=== PATIENT | male | born 1955 | race Two or more races ===

== ENCOUNTER 2019-01-12 14:09 | Inpatient (IN) | payer MEDICARE, MEDICAID ==
[~2019-01-12] VITALS: Ht 175.3 cm; Wt 78.5 kg
[2019-01-12] MEDS ORDERED: LISI-603 PO (15:04)
[2019-01-12] MEDS ORDERED: ERGO500040 PO (15:04)
[2019-01-12] MEDS ORDERED: DIVA-76 PO (15:04)
[2019-01-12] MEDS ORDERED: MELO-105 PO (15:04)
[2019-01-12] MEDS ORDERED: HYDR12.5 PO (15:04)
[2019-01-12] MEDS ORDERED: GABA-532 PO (15:04)
[2019-01-12] MEDS ORDERED: MECL-102 PO (15:04)
[2019-01-12] MEDS ORDERED: CITA10TA9 PO (15:04)
[2019-01-12 16:54] VITALS: BP 115/64
[2019-01-12] MEDS ORDERED: MAG HYDROX/AL HYDROX/SIMETH 30 ML UDC PO PRN (17:00)
[2019-01-12] MEDS ORDERED: MAGNESIUM HYDROXIDE 30 ML UDC PO PRN (17:00)
[2019-01-12] MEDS ORDERED: clonazePAM 0.5 MG TABLET PO PRN (17:00)
[2019-01-12] MEDS ORDERED: TEMAZEPAM 7.5 MG CAPSULE PO PRN (17:00)
[2019-01-12] MEDS ORDERED: ACETAMINOPHEN 325 MG TABLET PO PRN (17:00)
[2019-01-12] MEDS ORDERED: BLOOD SUGAR DIAGNOSTIC 1 EACH STRIP IN ONE (17:00)
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
--- NOTE | 2019-01-13 05:17 | NUR ---
GPS RN NOTES PT WAS UP ALL NIGHT, NEEDY, PACING HALLWAY. OFFERED SLEEP MEDS SEVERAL TIMES THROUGHOUT THE NIGHT BUT PT REFUSED, STATING "I SLEEP DURING THE DAY AND STAY UP AT NIGHT". ALERT AND ORIENTED X3. REQUIRES FREQUENT REDIRECTION. COOPERATIVE. FLUID AND SNACK GIVEN TOLERATED. NO S/S OF DISTRESS. DENIES SI, HI AT THIS TIME. PT HAS SEVERELY CRACKED HEELS ON BLE, REDNESS AND SCRATCHES ON BLE, BLACK TOENAILS ON BLE. WOUND CONSULT HAS BEEN DONE. HYPERVERBAL/TALKATIVE. STEADY GAIT. WILL CONTINUE TO MONITOR FOR SAFETY, MOOD, AND BEHAVIOR. ENDORSE TO AM SHIFT.
[2019-01-13 08:00] VITALS: BP 131/72
[2019-01-13 08:07] LABS: ALBUMIN 3.4 g/dL (3.4-5.0); BILIRUBIN,TOTAL 0.3 mg/dL (0.2-1.0); CALCIUM, SERUM 8.8 mg/dL (8.5-10.1); POTASSIUM 4.2 mmol/L (3.5-5.1); TOTAL PROTEIN, SERUM 7.3 g/dL (6.4-8.2)
[2019-01-13 08:17] LABS: CHOLESTEROL 210 mg/dL (<200); HDL CHOLESTEROL 57 mg/dL (40-60); LDL 124 mg/dL (0-99); TRIGLYCERIDES 131 mg/dL (30-150)
[2019-01-13] MEDS: HYDROCHLOROTHIAZIDE 25 MG TABLET PO SCH (08:46)
[2019-01-13] MEDS: MELOXICAM 7.5 MG TABLET PO SCH (08:47)
[2019-01-13] MEDS: LISINOPRIL (20MG) 20 MG TABLET PO SCH (08:47)
[2019-01-13 16:00] VITALS: BP 114/77
[2019-01-13 20:52] VITALS: BP 107/69
[2019-01-13] MEDS: OLANZAPINE 5 MG/TAB.RAPDIS PO SCH (21:32)
[2019-01-14 08:00] VITALS: BP 145/72
--- NOTE | 2019-01-14 08:41 | NUR ---
WOUND CARE CONSULT: PT PRESENTS AMBULATORY AND CONTINENT WITH TENDER CRACKED HEELS, PRESENT ON ADMISSION. RECOMMEND DPM CONSULT. DR SEXTON NOTIFIED OF CONSULT REQUEST. WILL SEE PRN.
[2019-01-14] MEDS: MELOXICAM 7.5 MG TABLET PO SCH (08:51)
[2019-01-14] MEDS: OLANZAPINE 5 MG/TAB.RAPDIS PO SCH ×2 (08:51→22:09)
[2019-01-14] MEDS: HYDROCHLOROTHIAZIDE 25 MG TABLET PO SCH (08:51)
[2019-01-14] MEDS: LISINOPRIL (20MG) 20 MG TABLET PO SCH (08:56)
--- NOTE | 2019-01-14 09:28 | NUR ---
Family Contact: SW called the pts , Seda ([phone]), and discussed the pts treatment plan and initial discharge plan. SW stated that the plan is for the pt to return to his home with his once he is stable on his medications. Pts stated that the pt does not take his medications and that he may be cheeking so the SW stated that she is going to discuss that with the pts nurse.
[2019-01-14 12:17] LABS: BASOPHILS # (AUTO) 0.1 /CMM (0.0-0.2); BASOPHILS % (AUTO) 1.1 % (0.0-2.0); EOSINOPHILS % (AUTO) 2.8 % (0.0-6.0); HEMATOCRIT 38 % (39-51); HEMOGLOBIN 12.5 g/dL (13.5-17.5); LYMPHOCYTES # (AUTO) 1.1 /CMM (0.8-4.8); LYMPHOCYTES % (AUTO) 18.9 % (20.0-44.0); MEAN CORPUSCULAR HGB CONC 33 g/dl (31.0-36.0); MEAN CORPUSCULAR VOLUME 92 fL (80-96); MONOCYTES # (AUTO) 0.7 /CMM (0.1-1.30); MONOCYTES % (AUTO) 11.8 % (2.0-12.0); NEUTROPHILS # (AUTO) 3.9 /CMM (1.8-8.9); NEUTROPHILS % (AUTO) 65.4 % (43.0-81.0); PLATELET COUNT (AUTO) 340 /CMM (150-450); RED BLOOD CELL COUNT(AUTO) 4.11 MIL/uL (4.5-6.0)
--- NOTE | 2019-01-14 14:57 | NUR ---
Initial Discharge Plan: Pt currently resides at his home with his located at [address] [place] [address]; ([phone]). Per pt, he would like to return to his home. JOLIE will work with the pt and the MD regarding appropriate discharge planning. SW will form a safe and proper discharge plan.
[2019-01-14 16:00] VITALS: BP 110/73
[2019-01-14 20:03] VITALS: BP 136/74
[2019-01-14 22:10] LABS: APPEARANCE,URINE CLEAR (CLEAR); BILIRUBIN,URINE NEGATIVE (NEGATIVE); BLOOD, URINE NEGATIVE Ery/uL (NEGATIVE); COLOR,URINE YELLOW (YELLOW); KETONES,URINE NEGATIVE (NEGATIVE); LEUKOCYTE ESTERASE ,URINE NEGATIVE (NEGATIVE); NITRITE, URINE NEGATIVE (NEGATIVE); PROTEIN,URINE NEGATIVE (NEGATIVE); UGLUCOSE NEGATIVE (NEGATIVE); UROBILINOGEN,URINE 0.2 EU/dL (0.2)
[2019-01-15 08:00] VITALS: BP 133/87
[2019-01-15] MEDS: LISINOPRIL (20MG) 20 MG TABLET PO SCH ×3 (08:06→09:00)
[2019-01-15] MEDS: HYDROCHLOROTHIAZIDE 25 MG TABLET PO SCH ×3 (08:07→09:00)
[2019-01-15] MEDS: OLANZAPINE 5 MG/TAB.RAPDIS PO SCH ×2 (08:08→21:22)
[2019-01-15] MEDS: MELOXICAM 7.5 MG TABLET PO SCH (08:09)
[2019-01-15] MEDS: ERGOCALCIFEROL (VITAMIN D 2) 50,000 UNIT CAPSULE PO SCH (08:15)
[2019-01-15] MEDS: MINERAL OIL/PETROLATUM,WHITE 120 GM JAR TP PRN ×2 (08:16→21:51)
[2019-01-15 16:00] VITALS: BP 131/71
[2019-01-15 20:24] VITALS: BP 107/65
--- NOTE | 2019-01-16 06:48 | NUR ---
GPS-RN PATIENT NOTED WITH SWELLING AND REDNESS ON BILATERAL FEET. PT DENIES ANY PAIN OR DISCOMFORT. INSTRUCTED PATIENT TO ELEVATE THE AFFECTED AREA TOLERATED. APPLIED EUCERIN CREAM ORDERED TO BILATERAL CRACKED HEELS. WILL ENDORSE TO THE DAY SHIFT NURSE FOR FOLLOW-UP.
[2019-01-16 08:00] VITALS: BP 127/69
[2019-01-16] MEDS: HYDROCHLOROTHIAZIDE 25 MG TABLET PO SCH (08:27)
[2019-01-16] MEDS: OLANZAPINE 5 MG/TAB.RAPDIS PO SCH ×2 (08:27→21:17)
[2019-01-16] MEDS: MELOXICAM 7.5 MG TABLET PO SCH (08:27)
[2019-01-16] MEDS: LISINOPRIL (20MG) 20 MG TABLET PO SCH (08:28)
--- NOTE | 2019-01-16 12:47 | NUR ---
RN NOTE: CONTACTED DR. SEXTON'S OFFICE AND SPOKE WITH PRANAV LEFT MESSAGE FOR MD TO RETURN CALL REGARDING BILATERAL REDNESS AND SWELLING TO LOWER EXTREMITIES. AWAITING FOR CALL BACK.
--- NOTE | 2019-01-16 14:52 | NUR ---
SS GROUP NOTE Goal: Patient will attend group held today from 1:00pm-3:00pm in the activities room and participate and/or actively listen to peers and be respectful. Intervention: SW facilitated group session with patients regarding sensory activity for the s. SW explored what tastes, smells, sounds, and sights come to mind when thinking about the iday season and gratefulness. SW redirected pt. as he presented with circumstantial speech and went off topic at times. Response: Patient was agreeable to participating in group session. The patient presented hyperverbal and pleasant. Patient was alert remained calm and cooperative throughout session. Pt. expressed he is grateful for his tierra, family and health. Pt. shard that he most enjoys turkey and the large feast his family has during . The patient was respectful towards her peers when they shared. Plan: Patient will be invited to attend next medical social consultant group session held.
[2019-01-16 16:00] VITALS: BP 103/57
[2019-01-16 21:51] VITALS: BP 107/71
[2019-01-17 08:00] VITALS: BP 119/74
[2019-01-17] MEDS: LISINOPRIL (20MG) 20 MG TABLET PO SCH (09:00)
[2019-01-17] MEDS: HYDROCHLOROTHIAZIDE 25 MG TABLET PO SCH (09:00)
[2019-01-17] MEDS: MELOXICAM 7.5 MG TABLET PO SCH (09:01)
[2019-01-17] MEDS: OLANZAPINE 5 MG/TAB.RAPDIS PO SCH ×2 (09:01→22:28)
--- NOTE | 2019-01-17 11:20 | NUR ---
PC Hearing Notification: SW informed the pt about his PC hearing and he stated that he wanted to remain in the hospital and that he does not want his to be informed of this hearing.
--- NOTE | 2019-01-17 15:11 | NUR ---
SS Group Note 01/17/19 JOLIE invited patient to today's support group at 1:00pm regarding Mindfulness in the activities room. Patient refused and stated, "I'm teaching someone how to speak Kittitian. Do you want to learn?". SW thanked pt. for kindness and redirected pt. to topic. SW encouraged patient to attend or sit in.SW explained the purpose and benefits of mindfulness Pt.stated he would attend once he was finished writing down the Kittitian alphabet.
[2019-01-17 16:00] VITALS: BP 104/72
[2019-01-17 20:12] VITALS: BP 129/76
[2019-01-18 08:00] VITALS: BP 141/89
[2019-01-18] MEDS: OLANZAPINE 5 MG/TAB.RAPDIS PO SCH ×2 (08:36→21:38)
[2019-01-18] MEDS: MELOXICAM 7.5 MG TABLET PO SCH (08:36)
[2019-01-18] MEDS: LISINOPRIL (20MG) 20 MG TABLET PO SCH (08:40)
[2019-01-18] MEDS: HYDROCHLOROTHIAZIDE 25 MG TABLET PO SCH (08:40)
[2019-01-18 16:00] VITALS: BP 115/79
--- NOTE | 2019-01-18 19:22 | NUR ---
GPS/RN NOTE: AWAKE, ALERT, TALKING OVER THE PHONE DURING INITIAL ROUNDING. MONITORING CONTINUES DURING THE SHIFT TO MAINTAIN SAFETY. NO APPARENT DISTRESS NOTED.
[2019-01-18 20:00] VITALS: BP 138/83
[2019-01-19] MEDS ORDERED: ONDANSETRON HCL/PF 4 MG/2 ML VIAL ONE (00:25)
[2019-01-19 08:00] VITALS: BP 123/85
[2019-01-19] MEDS: HYDROCHLOROTHIAZIDE 25 MG TABLET PO SCH (08:43)
[2019-01-19] MEDS: MELOXICAM 7.5 MG TABLET PO SCH (08:43)
[2019-01-19] MEDS: OLANZAPINE 5 MG/TAB.RAPDIS PO SCH ×2 (08:44→21:42)
[2019-01-19] MEDS: LISINOPRIL (20MG) 20 MG TABLET PO SCH (08:44)
[2019-01-19 16:00] VITALS: BP 110/65
[2019-01-19] MEDS ORDERED: LORAZEPAM 0.5 MG TABLET PO STA (17:41)
--- NOTE | 2019-01-19 17:56 | NUR ---
RN NOTE: PT RECEIVED OUTSIDE FOOD FROM [employer]. WHEN TOLD HE COULD NOT HAVE THE FOOD PT YELLED AND VIOLENTLY THREW FOOD ON THE GROUND. ORDER FOR ATIVAN 05.MG PO X 1.
[2019-01-19 19:57] VITALS: BP 129/81
--- NOTE | 2019-01-20 06:40 | NUR ---
PICTURE/SKIN ASSESSMENT IN CHAT
[2019-01-20 08:00] VITALS: BP 132/78
[2019-01-20] MEDS: HYDROCHLOROTHIAZIDE 25 MG TABLET PO SCH (08:44)
[2019-01-20] MEDS: MELOXICAM 7.5 MG TABLET PO SCH (08:44)
[2019-01-20] MEDS: LISINOPRIL (20MG) 20 MG TABLET PO SCH (08:45)
[2019-01-20] MEDS: OLANZAPINE 5 MG/TAB.RAPDIS PO SCH ×2 (08:45→21:12)
--- NOTE | 2019-01-20 08:51 | NUR ---
Friend Contact: JOLIE called the pts friend, Manjit ([phone]), who brought him into the hospital. He stated that he feels as if the pt is not behaving appropriately. He stated that the pts car is located in front of his house and that he does not understand that the car cannot just stay there indefinitely. He stated that he is not sure if the pts understands his situation and how to best assist him. SW stated that she would speak to her regarding his care once discharged from the hospital.
--- NOTE | 2019-01-20 15:30 | NUR ---
GROUP NOTE: SW assessed pts ability to participate in group therapy discussing "discharge planning." Pt was asleep and not easily aroused.
[2019-01-20 16:00] VITALS: BP 111/63
[2019-01-20 20:57] VITALS: BP 118/71
[2019-01-21 08:00] VITALS: BP 113/73
[2019-01-21] MEDS: HYDROCHLOROTHIAZIDE 25 MG TABLET PO SCH (09:00)
[2019-01-21] MEDS: LISINOPRIL (20MG) 20 MG TABLET PO SCH (09:00)
--- NOTE | 2019-01-21 09:04 | NUR ---
Family Contact: SW called the pts , Seda ([phone]), and informed her that the pt will be discharged sometime this week due to his improvement in behavior. SW stated that she would keep her informed regarding the discharge so that the necessities can be in place. SW stated that the pt would need to follow up with his aftercare providers to ensure that he will be cared for. Pts stated that she will work on making an appointment and making sure that he attends his appointments.
[2019-01-21] MEDS: MELOXICAM 7.5 MG TABLET PO SCH (10:03)
[2019-01-21] MEDS: OLANZAPINE 5 MG/TAB.RAPDIS PO SCH ×2 (10:03→21:08)
--- NOTE | 2019-01-21 15:40 | NUR ---
Group Note: SW encouraged the pt to attend group therapy on 01/21/19 at 2pm on the topic of discharge planning. SW assessed pts ability to participate in group therapy. Pt stated that he did not need to participate in group therapy due to being cognitively aware.
[2019-01-21 16:00] VITALS: BP 122/91
--- NOTE | 2019-01-21 18:00 | NUR ---
UP AND ABOUT ALL DAY,SOCIALIZING,COOPERATIVE,MED COMPLIANT.
[2019-01-21 20:23] VITALS: BP 137/68
[2019-01-21] MEDS: DIVALPROEX SODIUM 125 MG TABLET.DR PO SCH (21:07)
[2019-01-22 08:00] VITALS: BP 120/75
[2019-01-22] MEDS: DIVALPROEX SODIUM 125 MG TABLET.DR PO SCH ×2 (08:13→21:06)
[2019-01-22] MEDS: ERGOCALCIFEROL (VITAMIN D 2) 50,000 UNIT CAPSULE PO SCH (08:14)
[2019-01-22] MEDS: HYDROCHLOROTHIAZIDE 25 MG TABLET PO SCH ×2 (08:15→08:19)
[2019-01-22] MEDS: MELOXICAM 7.5 MG TABLET PO SCH (08:15)
[2019-01-22] MEDS: LISINOPRIL (20MG) 20 MG TABLET PO SCH ×2 (08:15→08:19)
[2019-01-22] MEDS: OLANZAPINE 5 MG/TAB.RAPDIS PO SCH ×2 (08:16→21:06)
[2019-01-22 16:00] VITALS: BP 112/71
[2019-01-22 20:31] VITALS: BP 123/70
[2019-01-23 08:00] VITALS: BP 133/85
[2019-01-23] MEDS: MELOXICAM 7.5 MG TABLET PO SCH (08:53)
[2019-01-23] MEDS: HYDROCHLOROTHIAZIDE 25 MG TABLET PO SCH (08:53)
[2019-01-23] MEDS: DIVALPROEX SODIUM 125 MG TABLET.DR PO SCH ×3 (08:54→21:15)
[2019-01-23] MEDS: OLANZAPINE 5 MG/TAB.RAPDIS PO SCH ×2 (08:54→21:15)
[2019-01-23] MEDS: LISINOPRIL (20MG) 20 MG TABLET PO SCH (09:00)
[2019-01-23 16:00] VITALS: BP 137/89
--- NOTE | 2019-01-23 16:28 | NUR ---
Family Contact: JOLIE called the pts , Seda ([phone]), and informed her that the pt is being discharged back home the next day. She stated that she will come pick him up at 3pm.
[2019-01-23 20:46] VITALS: BP 130/70
--- NOTE | 2019-01-23 21:30 | NUR ---
GPS RN NOTES: REFUSED DEPAKOTE- PER PATIENT HE DOES NOT LIKE THE EFFECT OF DEPAKOTE THAT MAKES HIM ACTIVE AND NOT SLEEP THROUGH THE NIGHT.
[2019-01-24 08:00] VITALS: BP 116/84
[2019-01-24] MEDS: OLANZAPINE 5 MG/TAB.RAPDIS PO SCH (08:35)
[2019-01-24] MEDS: DIVALPROEX SODIUM 125 MG TABLET.DR PO SCH (08:36)
[2019-01-24] MEDS: MELOXICAM 7.5 MG TABLET PO SCH (08:36)
[2019-01-24 08:37] VITALS: BP 116/84
[2019-01-24] MEDS: LISINOPRIL (20MG) 20 MG TABLET PO SCH (08:37)
[2019-01-24] MEDS: HYDROCHLOROTHIAZIDE 25 MG TABLET PO SCH (08:37)
--- NOTE | 2019-01-24 09:26 | NUR ---
DR. HOYT GAVE AN ORDER TO D/C HOLD AND D/C HOME AND TO FOLLOW UP WITH PSYCH AND MEDICAL DOCTORS.
--- NOTE | 2019-01-24 13:49 | NUR ---
Family Contact: SW called the pts , Seda ([phone]), and she stated that the pt will get picked up either by her or by her sister around 3pm.
--- NOTE | 2019-01-24 15:13 | NUR ---
Discharge Note: Pt was discharged to his home located at [address] [facility], [address] [address]; ([phone]). Pts , Seda ([phone]), arranged for the pt to be picked up by [employer] at 3pm. Upon discharge, the pt appeared to be in a dysphoric mood and presented with an agitated affect. Pt denied both suicidal and homicidal ideation as well as auditory and visual hallucinations. Pt will be under the care of [facility] by Dr. Demi Montesinos for psychiatric services located at [address] [address]; and a fax of records was sent to: [phone]. Pt will continue to be under the care of his strategic alliances manager, Dr Jack Brothers, located at [address] [place] [address]; .
--- NOTE | 2019-01-24 15:15 | NUR ---
GPS/RN PT DISCHARGED [facility]IA [employer] [facility] [id number] ARRANGED BY PT'S SISTER. PT ACCOMPANIED TO THE CAR BY FLOR[employer]DANO. PRESCRIPTIONS AND EXIT CARE PROVIDED. NO SI OR HI AT THE TIME OF D/C. PROPERTY RETURNED. SHOES ARRANGED FROM DONATION SUPPLY. ID BAND REMOVED. PT REFUSED TO LET THE NURSE TO TAKE PICTURES PRIOR TO D/C.
--- NOTE | 2019-01-25 11:10 | NUR ---
GPS/RN CALLED IN PRESCRIPTIONS TO [facility] [phone] BY PT'S REQUEST PT LOST THE PRESCRIPTIONS.
== END 2019-01-24 15:15 | disposition home or self-care (01) | DRG 885 ==
LOC: GPS 14:51
PROVIDERS: ADMIT Psychiatry & Neurology Psychiatry; ATTEND Family Medicine
DX: F39 Unspecified mood [affective] disorder (principal); F29 Unspecified psychosis not due to a substance or known physiological condition; G62.9 Polyneuropathy, unspecified; I10 Essential (primary) hypertension; M19.90 Unspecified osteoarthritis, unspecified site; Z73.6 Limitation of activities due to disability; F31.9 Bipolar disorder, unspecified; L85.3 Xerosis cutis; Z87.891 Personal history of nicotine dependence
CPT/HCPCS: 36415; 80053-TC; 80061-TC; 81000-TC; 82962-TC; 85025-TC; 87081-TC; 93971-TC; J2405

== ENCOUNTER 2019-04-24 23:02 | Inpatient (IN) | payer MEDICARE, OTHER ==
[~2019-04-24] VITALS: Ht 175.3 cm; Wt 82.6 kg
[~2019-04-24 23:02] MED LIST: CITA10TA9 PO; DIVA-76 PO; ERGO500040 PO; GABA-532 PO; HYDR12.5 PO; LISI-603 PO; MECL-159 PO; MELO-105 PO
--- NOTE | 2019-04-24 23:16 | NUR ---
PHLEB AT BEDSIDE FOR BLOOD DRAW
[2019-04-24 23:21] LABS: BASOPHILS # (AUTO) 0.1 /CMM (0.0-0.2); EOSINOPHILS % (AUTO) 2.6 % (0.0-6.0); HEMATOCRIT 40 % (39-51); HEMOGLOBIN 13.3 g/dL (13.5-17.5); LYMPHOCYTES # (AUTO) 1.2 /CMM (0.8-4.8); LYMPHOCYTES % (AUTO) 19.1 % (20.0-44.0); MEAN CORPUSCULAR HGB CONC 34 g/dl (31.0-36.0); MEAN CORPUSCULAR VOLUME 89 fL (80-96); MONOCYTES # (AUTO) 0.7 /CMM (0.1-1.30); MONOCYTES % (AUTO) 11.9 % (2.0-12.0); NEUTROPHILS % (AUTO) 65.4 % (43.0-81.0); PLATELET COUNT (AUTO) 372 /CMM (150-450); RED BLOOD CELL COUNT(AUTO) 4.44 MIL/uL (4.5-6.0); WHITE BLOOD COUNT (AUTO) 6.1 K/uL (4.3-11.0)
--- NOTE | 2019-04-24 23:30 | NUR ---
CARLA FROM HOME. CALLED 911 WHEN PT BECAME AGGRESSIVE WITH JADIEL MORROW, PT ON HOLD FOR DTO PLACED AT 2100.
[2019-04-24 23:37] LABS: ALANINE AMINOTRANSFERASE 24 U/L (12-78); ALBUMIN 3.7 g/dL (3.4-5.0); ALKALINE PHOSPHATASE 57 U/L (46-116); ASPARTATE AMINOTRANSFERASE 21 U/L (15-37); BILIRUBIN,DIRECT 0.1 mg/dL (0.0-0.2); BILIRUBIN,TOTAL 0.3 mg/dL (0.2-1.0); CALCIUM, SERUM 8.9 mg/dL (8.5-10.1); CARBON DIOXIDE 29 mmol/L (21-32); CHLORIDE 102 mmol/L (98-107); GLUCOSE 115 mg/dL (74-106); POTASSIUM 3.9 mmol/L (3.5-5.1); SODIUM SERUM 139 mmol/L (136-145); TOTAL PROTEIN, SERUM 7.6 g/dL (6.4-8.2); UREA NITROGEN, BLOOD 11 mg/dL (7-18)
[2019-04-24 23:39] LABS: ACETAMINOPHEN < 2 ug/ml (10-30)
--- NOTE | 2019-04-25 00:01 | NUR ---
REPORT GIVEN TO MARTÍNEZ MARTINEZ FOR CONTINUATION OF CARE.
--- NOTE | 2019-04-25 00:11 | NUR ---
PT TO [facility]ANK VIA WHEELCHAIR.
[2019-04-25 00:30] VITALS: BP 155/100
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
[2019-04-25 00:35] LABS: APPEARANCE,URINE Clear (CLEAR); BILIRUBIN,URINE Negative (NEGATIVE); BLOOD, URINE Negative Ery/uL (NEGATIVE); COLOR,URINE Yellow (YELLOW); KETONES,URINE Negative (NEGATIVE); LEUKOCYTE ESTERASE ,URINE Trace (NEGATIVE); NITRITE, URINE Negative (NEGATIVE); PROTEIN,URINE Negative (NEGATIVE); UGLUCOSE Negative (NEGATIVE); UROBILINOGEN,URINE 0.2 EU/dL (0.2)
[2019-04-25] MEDS ORDERED: TEMAZEPAM 7.5 MG CAPSULE PO PRN (01:00)
[2019-04-25] MEDS ORDERED: clonazePAM 0.5 MG TABLET PO PRN (01:00)
[2019-04-25] MEDS ORDERED: MAG HYDROX/AL HYDROX/SIMETH 30 ML UDC PO PRN (01:00)
[2019-04-25] MEDS ORDERED: MAGNESIUM HYDROXIDE 30 ML UDC PO PRN (01:00)
[2019-04-25] MEDS ORDERED: ACETAMINOPHEN 325 MG TABLET PO PRN (01:00)
[2019-04-25 01:07] LABS: BACTERIA,URINE Few /HPF (None Seen); SQUAMOUS EPITHELIAL CELL,UR Rare /HPF (None Seen)
[2019-04-25] MEDS ORDERED: BLOOD SUGAR DIAGNOSTIC 1 EACH STRIP IN ONE (01:30)
--- NOTE | 2019-04-25 01:58 | NUR ---
REFUSED BLOOD SUGAR LEVEL PATIENT REFUSED BLOOD SUGAR LEVEL TO BE CHECKED DESPITE OF RISKS & BENEFIT EXPLANATIONS X 3.
--- NOTE | 2019-04-25 04:21 | NUR ---
GPS RN NOTE NOTIFIED DR. FELIX TO DO MED RECON, MD STATED TO INFORM AM MD TO DO MED RECON IN AM SINCE PATIENT DOES NOT NEED ANY MEDICINE AT THIS TIME. WILL ENDORSE TO AM RN TO FOLLOW UP WITH AM MD FOR MED RECON.
--- NOTE | 2019-04-25 06:38 | NUR ---
NOTIFIED , LEFT VOICEMAIL CALLED JESSICA RODRIGUEZ AT [phone] & LEFT A VOICEMAIL ABOUT PATIENT'S ADMISSION AT [facility] GPS UNIT.
[2019-04-25 08:00] VITALS: BP_SYST 130; BP_SYST 141; BP_DIAS 67; BP_DIAS 78
[2019-04-25] MEDS ORDERED: OLAN10TA3 PO (08:59)
[2019-04-25] MEDS ORDERED: DIVA500T54 PO (08:59)
--- NOTE | 2019-04-25 09:07 | NUR ---
WOUND CARE CONSULT: PT PRESENTS AMBULATORY AND CONTINENT WITH SOME DRY SCRATCHES AND SCABS ON UPPER EXTREMITIES, PRESENT ON ADMISSION. PT STATES WAS DOING GARDENING WITH CACTUS PLANTS. NO DRAINAGE, ERYTHEMA OR TENDERNESS NOTED. WILL SEE PRN. CURRENT SUSANNE SCORE IS 22.
--- NOTE | 2019-04-25 09:18 | NUR ---
Initial Discharge Plan: Pt currently resides in his home with his located at [address] [place] [address], [place] [address]; ([phone]). Per pt, he would like to return to his home. SW will work with the pt and the MD regarding appropriate discharge planning. SW will form a safe and proper discharge.
--- NOTE | 2019-04-25 09:21 | NUR ---
Family Contact: SW called the pts , Seda ([phone]), and left a voicemail stating that the SW would like to speak to her regarding the pts treatment plan and discharge plan.
--- NOTE | 2019-04-25 12:43 | NUR ---
Family Contact: Pts , Seda ([phone]), called the SW and the SW discussed that the pt stopped taking his medication after being discharged home so the wants the MD to consider an injectable. Pt does not like taking medications that are liquids.
--- NOTE | 2019-04-25 15:53 | NUR ---
GROUP THERAPY: Pt was present in group discussing "suicidal ideation." Pt was unable to participate due to having Dementia and pt being unable to engage in a conversation. Pt sat in the back and was interrupting. SW asked pt that he was able to sit in group but needed to be respectful and wait his turn to speak. Pt then got up and left the room and did not return.
[2019-04-25 16:00] VITALS: BP 120/79
[2019-04-25 20:29] VITALS: BP 131/79
[2019-04-25] MEDS: OLANZAPINE 10 MG TABLET PO SCH (20:56)
[2019-04-25] MEDS: DIVALPROEX SODIUM 500 MG TABLET.DR PO SCH (21:06)
[2019-04-26 06:46] LABS: BASOPHILS # (AUTO) 0.1 /CMM (0.0-0.2); BASOPHILS % (AUTO) 1.1 % (0.0-2.0); EOSINOPHILS % (AUTO) 4.4 % (0.0-6.0); HEMATOCRIT 39 % (39-51); MEAN CORPUSCULAR HGB CONC 34 g/dl (31.0-36.0); MEAN CORPUSCULAR VOLUME 89 fL (80-96); MONOCYTES # (AUTO) 0.6 /CMM (0.1-1.30); MONOCYTES % (AUTO) 11.8 % (2.0-12.0); NEUTROPHILS # (AUTO) 3.1 /CMM (1.8-8.9); NEUTROPHILS % (AUTO) 61.7 % (43.0-81.0); PLATELET COUNT (AUTO) 330 /CMM (150-450); RED BLOOD CELL COUNT(AUTO) 4.35 MIL/uL (4.5-6.0)
[2019-04-26 06:55] LABS: CALCIUM, SERUM 8.7 mg/dL (8.5-10.1); CREATININE 0.9 mg/dL (0.6-1.3); POTASSIUM 4.2 mmol/L (3.5-5.1)
[2019-04-26 08:00] VITALS: BP 138/84
[2019-04-26] MEDS: OLANZAPINE 10 MG TABLET PO SCH ×2 (09:47→21:20)
[2019-04-26] MEDS: MELOXICAM 7.5 MG TABLET PO SCH (09:47)
[2019-04-26] MEDS: LISINOPRIL (20MG) 20 MG TABLET PO SCH (09:48)
[2019-04-26] MEDS: HYDROCHLOROTHIAZIDE 25 MG TABLET PO SCH (09:49)
--- NOTE | 2019-04-26 14:30 | NUR ---
PT. REQUESTS EUCERIN CREAM FOR LEGS AND NEOSPORIN OINT FOR RT. HAND SCABS.CALL OUT TO DR. MERCHANT.GIVEN ORDER FOR WD. CONSULT.TO PASS ON TO EVE. MARTINEZ.
[2019-04-26 16:00] VITALS: BP 136/62
--- NOTE | 2019-04-26 18:00 | NUR ---
no change in status
[2019-04-26 21:07] VITALS: BP 117/66
[2019-04-26] MEDS: DIVALPROEX SODIUM 500 MG TABLET.DR PO SCH (21:37)
[2019-04-27 08:00] VITALS: BP 100/57
[2019-04-27] MEDS: HYDROCHLOROTHIAZIDE 25 MG TABLET PO SCH (08:28)
[2019-04-27] MEDS: LISINOPRIL (20MG) 20 MG TABLET PO SCH (08:28)
[2019-04-27] MEDS: MELOXICAM 7.5 MG TABLET PO SCH (08:28)
[2019-04-27] MEDS: OLANZAPINE 10 MG TABLET PO SCH ×2 (08:28→21:35)
--- NOTE | 2019-04-27 09:29 | NUR ---
GPS RN NOTE: PATIENT AMBULATORY STEADY GAIT IN THE HALLWAY COMPLIANT WITH MEDICATIONS A/OX3.VS STABLE,GRANDIOSE IDEAS,HYPERVERBAL. DENIES SI/HI,WILL CONT. TO MONITOR Q 15 MINUTES FOR SAFETY AND BEHAVIOR.
[2019-04-27 16:02] VITALS: BP 114/77
[2019-04-27 20:05] VITALS: BP 112/71
[2019-04-27] MEDS: DIVALPROEX SODIUM 500 MG TABLET.DR PO SCH (21:35)
[2019-04-28 08:00] VITALS: BP 120/81
[2019-04-28] MEDS: MELOXICAM 7.5 MG TABLET PO SCH (08:56)
[2019-04-28] MEDS: OLANZAPINE 10 MG TABLET PO SCH ×2 (08:56→21:32)
[2019-04-28] MEDS: HYDROCHLOROTHIAZIDE 25 MG TABLET PO SCH (08:57)
[2019-04-28] MEDS: LISINOPRIL (20MG) 20 MG TABLET PO SCH (08:57)
[2019-04-28 16:00] VITALS: BP 134/80
[2019-04-28 20:48] VITALS: BP 125/65
[2019-04-28] MEDS: DIVALPROEX SODIUM 500 MG TABLET.DR PO SCH (21:59)
--- NOTE | 2019-04-29 00:49 | NUR ---
GPS RN NOTES PT REFUSED PM DEPAKOTE 500MG 1 TAB PO. PER PT "I DON'T TAKE THIS MEDICATION ANY MORE, IT HAS BEEN CHANGED TO ANOTHER MEDICATION", BUT WHEN ASKED WHAT IS THE NEW MEDICATION PT SAID HE DOES NOT REMEMBER. PT WAS CALM, NEEDY, GUARDED, A/O X2. WILL CONTINUE TO MONITOR PT.
[2019-04-29 08:00] VITALS: BP 151/96
[2019-04-29] MEDS: MELOXICAM 7.5 MG TABLET PO SCH (08:01)
[2019-04-29] MEDS: OLANZAPINE 10 MG TABLET PO SCH ×2 (08:01→21:45)
[2019-04-29] MEDS: LISINOPRIL (20MG) 20 MG TABLET PO SCH (08:02)
[2019-04-29] MEDS: HYDROCHLOROTHIAZIDE 25 MG TABLET PO SCH (08:03)
--- NOTE | 2019-04-29 11:38 | NUR ---
WOUND CARE CONSULT/FOLLOW UP: PT SEEN PREVIOUSLY BY PETROGRAPHY TEACHER AND NOTED TO HAVE DRY SCRATCHES,SCABS ON HANDS PRESENT ON ADMISSION. NO WOUND CARE NEEDED AT THIS TIME. PT IS CONTINENT AND AMBULATORY. WILL SEE PRN.
--- NOTE | 2019-04-29 12:35 | NUR ---
Probable Cause (PC) Hearing Notification: SW called the pts , Seda ([phone]), and informed her that the pt will be having his hearing today and that the SW will call her once it is concluded with the results.
--- NOTE | 2019-04-29 15:56 | NUR ---
Group Note: Pt was encouraged to attend group therapy on 04/29/19 at 2pm discussing the topic of concerns around discharge plan. Pt refused and began speaking in a rapid manner. Pt appeared to be tangential and was difficult to redirect. SW attempted to speak to the pt about the plan to either send him home with a long acting shot or to a SNF due to his lack of medication compliance but the pt began speaking about an [place] author who was crazy in love with nature and his passion. JOLIE attempted to redirect the pt multiple times and was unsuccessful and therefore the pt was deemed inappropriate for group.
[2019-04-29 16:00] VITALS: BP 104/60
[2019-04-29 20:08] VITALS: BP 111/62
[2019-04-29] MEDS: DIVALPROEX SODIUM 500 MG TABLET.DR PO SCH (22:00)
--- NOTE | 2019-04-30 03:15 | NUR ---
GPS RN NOTES PT REFUSED PM DEPAKOTE 500MG 1 TAB PO. PT WAS CALM, NEEDY, GUARDED, A/O X2. WILL CONTINUE TO MONITOR.
[2019-04-30 08:00] VITALS: BP 140/76
[2019-04-30] MEDS: MELOXICAM 7.5 MG TABLET PO SCH (08:48)
[2019-04-30] MEDS: HYDROCHLOROTHIAZIDE 25 MG TABLET PO SCH (08:49)
[2019-04-30] MEDS: OLANZAPINE 10 MG TABLET PO SCH ×2 (08:49→21:10)
[2019-04-30] MEDS: LISINOPRIL (20MG) 20 MG TABLET PO SCH (08:49)
--- NOTE | 2019-04-30 10:48 | NUR ---
Family Contact: Pts , Seda ([phone]), called the SW and the SW informed her that the pt is remaining in the hospital until the MD decides that the pt is ready to be discharged. SW also informed her that the MD was informed about the request for the long acting shot and stated that the SW will be sending out SNF referrals today.
--- NOTE | 2019-04-30 10:49 | NUR ---
SNF Referral: JOLIE faxed a referral to [facility] with attn to Kandy to the fax number: [phone].
--- NOTE | 2019-04-30 11:49 | NUR ---
SNF Contact: Kandy from [facility] contacted the SW and stated that the pt was not accepted to their facility.
--- NOTE | 2019-04-30 11:50 | NUR ---
Individual Intervention with the Pt: SW met with the pt at bedside and discussed his discharge plan and discussed the idea of a long acting shot. SW stated that he can either go home or to a SNF but he needs to be compliant with his medications to be able to go home. SW asked him about his medication compliance when he goes home and he stated that he does take medications and that he will not be taking a long acting shot.
--- NOTE | 2019-04-30 12:43 | NUR ---
SNF Referral: JOLIE faxed a referral to [facility] with attn to Tha to the fax number: [phone].
--- NOTE | 2019-04-30 13:13 | NUR ---
SNF Contact: Jimena ([phone]) from [facility] called the SW and stated that the pt was accepted to their facility.
--- NOTE | 2019-04-30 14:52 | NUR ---
GPS RN NOTE: PT IN ROOM NO ACUTE DISTRESS NOTED, VSS, PT HYPERVERBAL. PT DENIES SI/HI/AH/VH AT PRESENT TIME.PT COMPLIANT WITH MEDICATION ADMINISTRATION AND PLAN OF CARE. WOUND CONSULT DONE WITH NO NEW ORDERS. WILL CONT TO MONITOR Q 15 FOR SAFETY AND BEHAVIOR
[2019-04-30 16:00] VITALS: BP 135/81
--- NOTE | 2019-04-30 16:19 | NUR ---
GROUP NOTE: Pt was present in group on this day discussing "discharge plan." Pt was sitting in group talking on the phone then walked away.
[2019-04-30] MEDS ORDERED: MINERAL OIL/PETROLATUM,WHITE 120 GM JAR TP PRN (16:30)
[2019-04-30 20:29] VITALS: BP 127/83
--- NOTE | 2019-04-30 21:53 | NUR ---
GPS RN NOTES: REFUSED MEDICATION PT REFUSED DEPAKOTE 500MG PO THAT IS DUE @2200. PT STATED, "NO. WILL NOT TAKE THAT." EXPLAINED RISKS AND BENEFITS. PT STILL REFUSED X3. CONTINUE TO MONITOR.
[2019-04-30] MEDS: DIVALPROEX SODIUM 500 MG TABLET.DR PO SCH (21:56)
--- NOTE | 2019-05-01 00:15 | NUR ---
GPS RN NOTES: REFUSED RESTORIL UPON DOING ROUNDS, PT IN ROOM WRITING ON A PIECE OF PAPER. ASKED PT IF HE IS OKAY, PT STATED, "YES IM OKAY." OFFERED RESTORIL 7.5MG PO PRN ORDERED TO HELP PT SLEEP. PT REFUSED. EXPLAIN RISKS AND BENEFITS. PT STILL REFUSED. PT STATED, "I CAN SLEEP ON MY OWN. I JUST DONT FEEL LIKE SLEEPING NOW." CONTINUE TO MONITOR.
[2019-05-01 08:00] VITALS: BP 116/70
[2019-05-01] MEDS: HYDROCHLOROTHIAZIDE 25 MG TABLET PO SCH (08:32)
[2019-05-01] MEDS: LISINOPRIL (20MG) 20 MG TABLET PO SCH (08:32)
[2019-05-01] MEDS: OLANZAPINE 10 MG TABLET PO SCH ×2 (08:32→20:41)
[2019-05-01] MEDS: MELOXICAM 7.5 MG TABLET PO SCH (08:33)
--- NOTE | 2019-05-01 09:15 | NUR ---
RN NOTE: RECEIVED PT AMBULATING IN HALLWAY. NO ACUTE DISTRESS NOTED. VSS, AFEBRILE. PT A+OX3. PT IS HYPERVERBAL AND DELUSIONAL. BELIEVES HE IS AN AUTHOR. PT IS COMPLIANT WITH MEDICATION ADMINISTRATION AND PLAN OF CARE. PT IS AMBULATORY WITH STEADY GAIT AND INDEPENDENT WITH CARE. PT DENIES SI/HI/AH/VH AT PRESENT TIME. WILL CONT TO MONITOR PT PER GPS PROTOCOL
--- NOTE | 2019-05-01 14:20 | NUR ---
Group Note: SW encouraged pt to attend group therapy on 05/01/19 at 2pm discussing social supports. Pt agreed and the SW attempted to speak to him regarding the group topic. The pt appeared to be distracted because he grabbed a sheet of paper and began drawing. SW attempted to redirect the pt and asked him to put the drawing aside and speak on the topic first but the pt stated that he wanted to draw an apple tree and then get ice cream. Pt appeared to be hyperactive with a tangential thought process and was deemed inappropriate for group.
[2019-05-01 16:00] VITALS: BP 110/65
[2019-05-01 20:00] VITALS: BP 129/72
[2019-05-01 20:05] VITALS: BP_SYST 72
[2019-05-01] MEDS: DIVALPROEX SODIUM 500 MG TABLET.DR PO SCH (22:00)
--- NOTE | 2019-05-01 22:05 | NUR ---
GPS RN NOTES: REFUSED MEDICATION PT REFUSED DEPAKOTE 500MG PO THAT IS DUE @2200. PT STATED, "NO. I REFUSE. " EXPLAINED RISKS AND BENEFITS. PT STILL REFUSED X3. CONTINUE TO MONITOR.
[2019-05-02 08:00] VITALS: BP 147/82
[2019-05-02] MEDS: OLANZAPINE 10 MG TABLET PO SCH (08:38)
[2019-05-02] MEDS: HYDROCHLOROTHIAZIDE 25 MG TABLET PO SCH (08:45)
[2019-05-02] MEDS: MELOXICAM 7.5 MG TABLET PO SCH (08:45)
[2019-05-02] MEDS: LISINOPRIL (20MG) 20 MG TABLET PO SCH (08:45)
--- NOTE | 2019-05-02 10:01 | NUR ---
GPS RN OPENING NOTE: RECEIVED PT AMBULATING IN HALLWAY. NO ACUTE DISTRESS NOTED. VSS, AFEBRILE. PT AOX3. PT IS HYPERVERBAL AND DELUSIONAL. PT IS HYPERSEXUAL AND STATING THAT ALL STAFF IS HIS LOVE AND ASKING THEM TO HIM. HE IS SINGING IN THE HALLWAYS. PT IS SELECTIVE WITH MEDICATIONS AND REFUSED BP MEDS AND MOBIC TODAY. PT IS AMBULATORY WITH STEADY GAIT AND INDEPENDENT WITH CARE. PT DENIES SI/HI/AH/VH AT PRESENT TIME. WILL CONT TO MONITOR PT PER GPS PROTOCOL
--- NOTE | 2019-05-02 13:36 | NUR ---
Family Contact: SW called the pts , Seda ([phone]), and informed her that the pt will be discharged to a SNF on Sunday.
[2019-05-02 16:00] VITALS: BP 120/87
[2019-05-02 20:38] VITALS: BP 135/87
[2019-05-02] MEDS: OLANZAPINE 5 MG/TAB.RAPDIS PO SCH (21:46)
[2019-05-03 08:00] VITALS: BP 124/69
[2019-05-03] MEDS: OLANZAPINE 5 MG/TAB.RAPDIS PO SCH ×2 (08:19→22:18)
[2019-05-03] MEDS: MELOXICAM 7.5 MG TABLET PO SCH (08:20)
[2019-05-03] MEDS: LISINOPRIL (20MG) 20 MG TABLET PO SCH (08:20)
[2019-05-03] MEDS: HYDROCHLOROTHIAZIDE 25 MG TABLET PO SCH (08:22)
--- NOTE | 2019-05-03 09:00 | NUR ---
RN NOTE- RECEIVED PT AMBULATING IN HALLWAY. NO ACUTE DISTRESS NOTED. VSS, AFEBRILE. PT AOX3. PT IS HYPERVERBAL AND DELUSIONAL. HE IS SINGING IN THE HALLWAYS WITH OTHER PTS. PT IS AMBULATORY WITH STEADY GAIT AND INDEPENDENT WITH CARE. PT DENIES SI/HI/AH/VH AT PRESENT TIME. WILL CONT TO MONITOR PT PER GPS PROTOCOL
[2019-05-03 16:00] VITALS: BP 88/57
[2019-05-03 16:38] VITALS: BP 102/56
[2019-05-03 20:03] VITALS: BP 131/81
[2019-05-04 08:00] VITALS: BP 128/65
[2019-05-04] MEDS: MELOXICAM 7.5 MG TABLET PO SCH (08:38)
[2019-05-04] MEDS: HYDROCHLOROTHIAZIDE 25 MG TABLET PO SCH (08:39)
[2019-05-04] MEDS: OLANZAPINE 5 MG/TAB.RAPDIS PO SCH ×2 (08:41→22:12)
[2019-05-04] MEDS: LISINOPRIL (20MG) 20 MG TABLET PO SCH (08:41)
--- NOTE | 2019-05-04 10:11 | NUR ---
RN NOTE- RECEIVED PT IN ROOM AND IN DILLARD. PT IS AMBULATORY WITH STEADY GAIT AND INDEPENDENT WITH CARE. MED COMPLIANT. PT DENIES SI/HI/AH/VH AT PRESENT TIME. WILL CONT TO MONITOR PT PER GPS PROTOCOL
[2019-05-04 16:00] VITALS: BP 109/73
[2019-05-04 20:24] VITALS: BP 122/41
[2019-05-04 22:11] VITALS: BP 101/68
[2019-05-04 23:11] VITALS: BP 109/62
[2019-05-05 08:00] VITALS: BP 129/67
--- NOTE | 2019-05-05 08:05 | NUR ---
Family Contact: Pts , Seda ([phone]), called the SW and stated that she is concerned that the pt did not receive the long acting shot and that he does not seem to be aware that he is being discharged to a SNF instead of home. SW stated that she had informed the MD multiple times about the long acting shot but it will be up to him if he decides to give one. SW stated that it is going to be the same MD who is going to follow the pt to the SNF.
[2019-05-05] MEDS: LISINOPRIL (20MG) 20 MG TABLET PO SCH (08:17)
[2019-05-05] MEDS: HYDROCHLOROTHIAZIDE 25 MG TABLET PO SCH (08:18)
[2019-05-05] MEDS: MELOXICAM 7.5 MG TABLET PO SCH (08:19)
[2019-05-05] MEDS: OLANZAPINE 5 MG/TAB.RAPDIS PO SCH ×2 (08:19→21:26)
--- NOTE | 2019-05-05 09:00 | NUR ---
RN NOTE- NO BEHAVIORAL ISSUES. AMBULATORY WITH STEADY GAIT AND INDEPENDENT WITH CARE. MED COMPLIANT. PT DENIES SI/HI/AH/VH AT PRESENT TIME. WILL CONT TO MONITOR PT PER GPS PROTOCOL
--- NOTE | 2019-05-05 09:38 | NUR ---
SNF Contact: JOLIE faxed updated notes to [facility] with attn to Tha to the fax number: [phone].
--- NOTE | 2019-05-05 12:33 | NUR ---
Individual Intervention with the pt: SW spoke to the pt about his discharge to a SNF but the pt stated that he wanted to go live with his sister because his cannot just decide to place him elsewhere. SW explained to him that the MD recommendation was for the pt to be in a SNF to further stabilize so that when he does go home his mood and behaviors would be calmer and better regulated. Pt stated that he refuses to even spend one day at the nursing facility and that we cannot force him to go. Pt handed the phone to the SW and had him speak to his sister, Claire ([phone]), who stated that she would take him in.
--- NOTE | 2019-05-05 13:38 | NUR ---
Reason for Cancelled Discharge: JOLIE met with the pts sister, Claire ([phone]), who stated that she is not comfortable with the pt being discharged to her home since the pt is refusing to be discharged to [facility]. Pts does not feel comfortable with the pt at their home as well in this current situation. Charge Nurse spoke to the MD about the situation and he decided to cancel the discharge. JOLIE reminded the Charge Nurse to inform the MD that the pts has requested a long acting shot for the pt since the pt does not take his medications when he is not in the hospital.
--- NOTE | 2019-05-05 14:07 | NUR ---
Family Contact: JOLIE called the pts , Seda ([phone]), and informed her that the pts discharge got cancelled due to him refusing to go to a SNF and due to the pts sister being uncomfortable in taking the pt to her home. JOLIE stated that she will keep her updated in terms of his discharge.
--- NOTE | 2019-05-05 14:31 | NUR ---
RN NOTE- DC CANCELLED TO SNF PER JOLIE AND DR HOYT. PT STATING HE WILL, "SPEAK TO MY LOG TRUCK DRIVER... IM GETTING A NEW DOCTOR." AGITATION DECREASED AFTER TALKING W PT FOR AWHILE. WILL CONTINUE TO ENCOURAGE VERBALIZATION AND CALM BEHAVIOR. JOLIE NOTE BELOW- Reason for Cancelled Discharge: JOLIE met with the pts sister, Claire ([phone]), who stated that she is not comfortable with the pt being discharged to her home since the pt is refusing to be discharged to [facility]. Pts does not feel comfortable with the pt at their home as well in this current situation. Charge Nurse spoke to the MD about the situation and he decided to cancel the discharge. JOLIE reminded the Charge Nurse to inform the MD that the pts has requested a long acting shot for the pt since the pt does not take his medications when he is not in the hospital.
--- NOTE | 2019-05-05 15:05 | NUR ---
MD Contact: Dr. 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 He stated that the shot may make his condition worse.
[2019-05-05 16:00] VITALS: BP 128/75
[2019-05-05] MEDS ORDERED: HALOPERIDOL 5 MG TABLET PO ONE (16:30)
--- NOTE | 2019-05-05 19:20 | NUR ---
GPS RN opening notes Received Pt sitting in bed and awake. Pt is alert and orientedX2,hyperverbal, calm, forgetful, anxious, restless and med compliant. Respiration is normal in room air. No SOB. No S/S of distress noted. Ambulatory with steady gait. Offered fluids and snacks. Pt denies SI/HI at this time. Reality orientation provided. Safety precautions is maintained. Will continue to monitor for mood safety and behavior Q 15 mins checks according to [facility] hospital protocol.
[2019-05-05 20:00] VITALS: BP 115/62
[2019-05-05 20:02] VITALS: BP 115/62
--- NOTE | 2019-05-06 07:00 | NUR ---
GPS RN closing notes Pt is resting in bed comfortably. Respiration is normal. No SOB. No S/S of distress noted. Pt is in stable condition. Routine meds were given as ordered. Kept Pt clean, dry and comfortable. All needs met and attended. Safety precautions is maintained. Bed at low position, brakes locked, side rails upX2. Will endorse to morning nurse for JESS.
[2019-05-06 08:00] VITALS: BP 123/81
[2019-05-06] MEDS: HYDROCHLOROTHIAZIDE 25 MG TABLET PO SCH ×2 (09:00→09:20)
[2019-05-06] MEDS: LISINOPRIL (20MG) 20 MG TABLET PO SCH ×2 (09:00→09:20)
[2019-05-06] MEDS: OLANZAPINE 5 MG/TAB.RAPDIS PO SCH (09:19)
[2019-05-06] MEDS: MELOXICAM 7.5 MG TABLET PO SCH (09:20)
--- NOTE | 2019-05-06 15:57 | NUR ---
Group Note: SW encouraged pt to attend group therapy on 05/06/19 at 2pm discussing reality testing regarding their admission. Pt refused because he is upset with the SW for "not helping with the discharge the previous day." SW stated that the pt was not ready to be discharged and that was why the pts MD cancelled the order. Pt began to shout at the SW and stated "no one can fucking do anything here, you are all trying to segregate me. Fuck you all. I will fuck you all." SW deemed the pt inappropriate for group therapy at this time.
[2019-05-06 16:00] VITALS: BP 125/75
[2019-05-06] MEDS ORDERED: OLANZAPINE 5 MG/TAB.RAPDIS PO SCH (18:30)
[2019-05-06 20:17] VITALS: BP 124/73
[2019-05-06] MEDS: OLANZAPINE 10 MG TABLET PO SCH (22:05)
[2019-05-07 08:00] VITALS: BP 145/72
[2019-05-07] MEDS: MELOXICAM 7.5 MG TABLET PO SCH (08:43)
[2019-05-07] MEDS ORDERED: OLANZAPINE 5 MG/TAB.RAPDIS PO SCH (09:00)
--- NOTE | 2019-05-07 09:37 | NUR ---
GPS RN OPENING NOTE: RECEIVED PT AMBULATING IN HALLWAY. NO ACUTE DISTRESS NOTED. VSS, AFEBRILE. PT AOX3. PT IS HYPERVERBAL AND DELUSIONAL. PT IS COMPLIANT WITH MEDICATION ADMINISTRATION. PT IS AMBULATORY WITH STEADY GAIT AND INDEPENDENT WITH CARE. PT DENIES SI/HI/AH/VH AT PRESENT TIME. WILL CONT TO MONITOR PT PER GPS PROTOCOL
--- NOTE | 2019-05-07 15:04 | NUR ---
Group Note: SW encouraged pt to attend group therapy on 05/07/19 at 2pm discussing discharge planning. Pt refused because he is upset with the SW for "not helping with his discharge." Pt stated, "I do not trust you or anyone here. No one helps me here. I will not sit in this group."
[2019-05-07 16:00] VITALS: BP 114/65
--- NOTE | 2019-05-07 16:02 | NUR ---
Family Contact: Pts , Seda ([phone]), called the SW and the SW stated that the pt is going to be discharged on Sunday as the MD is increasing medications today. SW stated that the pt has refused the long acting shot and therefore there is nothing else we can do for him at this time.
[2019-05-07 20:00] VITALS: BP 121/65
[2019-05-07] MEDS: OLANZAPINE 10 MG TABLET PO SCH (21:58)
[2019-05-08 08:00] VITALS: BP 125/78
[2019-05-08] MEDS: OLANZAPINE 5 MG/TAB.RAPDIS PO SCH (08:15)
[2019-05-08] MEDS: MELOXICAM 7.5 MG TABLET PO SCH (08:15)
[2019-05-08] MEDS: LISINOPRIL (20MG) 20 MG TABLET PO SCH (08:15)
[2019-05-08] MEDS: HYDROCHLOROTHIAZIDE 25 MG TABLET PO SCH (08:15)
[2019-05-08 16:00] VITALS: BP 146/77
--- NOTE | 2019-05-08 16:09 | NUR ---
Family Contact: Pts , Seda ([phone]), called the SW and the SW discussed the pts discharge with her. She stated that she will pick the pt up with his sister around 11AM.
[2019-05-08 20:31] VITALS: BP 123/71
[2019-05-08] MEDS: OLANZAPINE 10 MG TABLET PO SCH (21:21)
--- NOTE | 2019-05-08 21:39 | NUR ---
GPS/MEDICAL AUDITOR NURSING NOTES: PT. IN HIS ROOM READING. NO DISTRESS OR AGITATION NOTED. COOPERATIVE AND PLEASANT AT THIS TIME. NO C/O PAIN OR DISCOMFORT. SAFETY ENVIRONMENT OBSERVED AT ALL TIMES. WILL CONTINUE TO MONITOR Q15 MIN FOR SAFETY AND BEHAVIOR.
[2019-05-09 08:45] VITALS: BP 125/81
[2019-05-09] MEDS: MELOXICAM 7.5 MG TABLET PO SCH (08:48)
[2019-05-09] MEDS: OLANZAPINE 5 MG/TAB.RAPDIS PO SCH (08:48)
[2019-05-09 08:50] VITALS: BP 125/81
[2019-05-09] MEDS: LISINOPRIL (20MG) 20 MG TABLET PO SCH (08:50)
[2019-05-09] MEDS: HYDROCHLOROTHIAZIDE 25 MG TABLET PO SCH (08:50)
--- NOTE | 2019-05-09 11:26 | NUR ---
GPS/RN-NOTES PATIENT DISCHARGE TO HOME WITH HER JENNIFER TODAY. DR. HOYT AND DR. FELIX MADE AWARE AND AGREED OF THE DISCHARGE WITH ORDERS. PATIENT DID NOT VERBALIZE SI/HI,DENIES VISUAL AUDITORY HALLUCINATIONS AT THE TIME OF DISCHARGE. ALL DISCHARGE PAPERS WAS SIGN BY THE PATIENT ..ALL DISCHARGE MEDICATIONS WAS REVIEWED WITH THE PATIENT . RX WAS GIVEN TO THE .INSTRUCTED PATIENT TO FOLLOW UP WITH PCP AND GO TO THE NEAREST EMERGENCY ROOM IN CASE OF EMERGENCY. PATIENT WAS PRINTING TABLE HAND BY JENNIFER VIA PRIVATE CAR. PATIENT WAS ACCOMPANIED BY TWO STAFF IN THE LOBBY FOR SAFETY. PATIENT LEFT THE UNIT IN STABLE CONDITION WITH ALL BELONGINGS.ALERT ORIENTED X3 AMBULATORY STEADY GAIT,BUT PATIENT PREFERS TO BE WHEELED DOWN THE LOBBY.
--- NOTE | 2019-05-09 12:00 | NUR ---
Discharge Note: Pt was discharged to his home located at [address] [place] [id number]; ([phone]). Pts , Seda ([phone]), picked up the pt at 11AM with his sister present. Upon discharge, the pt appeared to be in a euthymic mood and presented with a calm affect. Pt appeared to be alert and oriented x4 (time, place, self and situation). Pt appeared to be well groomed and appropriately dressed. Pt denied both suicidal and homicidal ideation as well as auditory and visual hallucinations. Pt will be under the care of his psychiatrist, Dr. Missael Neff, located at [address] [place] [id number]; [phone]. Pt has an appointment on 05/12/19 at 4:30pm. Pt will also be under the care of his water quality analyst, Dr Jack Brothers, located at [address] [place] [address]; ; records were emailed to [email or web address] as requested.
== END 2019-05-09 11:25 | disposition home or self-care (01) | DRG 885 ==
LOC: ER 23:03 → GPS 23:54
PROVIDERS: ADMIT Psychiatry & Neurology Psychiatry; ATTEND Internal Medicine
DX: F29 Unspecified psychosis not due to a substance or known physiological condition (principal); G93.41 Metabolic encephalopathy; F41.9 Anxiety disorder, unspecified; F03.90 Unspecified dementia, unspecified severity, without behavioral disturbance, psychotic disturbance, mood disturbance, and anxiety; D64.9 Anemia, unspecified; I10 Essential (primary) hypertension; F32.9 Major depressive disorder, single episode, unspecified; F17.210 Nicotine dependence, cigarettes, uncomplicated; G62.9 Polyneuropathy, unspecified; Z91.19 Patient's noncompliance with other medical treatment and regimen
CPT/HCPCS: 36415; 80048-TC; 80061-TC; 80076-TC; 80164-TC; 80305; 81000-TC; 85025-TC; 87081-TC; G0480